=== PATIENT | male | born 1950 | race Caucasian/White ===

== ENCOUNTER 2016-11-20 16:56 | Emergency (ER) | payer BC ==
[~2016-11-20] VITALS: Ht 188 cm; Wt 111.9 kg
[~2016-11-20 16:56] MED LIST: ASPI-558 PO; CITA-49 PO; DOXE10CA21 PO; GABA-222 PO; LEVO150T58 PO; OMEP40CA30 PO; OXYC5CAP12 PO; SIMV80TA54 PO; TAMS0.4C46 PO; TIZA4CAP6 PO; [UNRECOGNIZED DRUG - CODE] PO; [UNRECOGNIZED DRUG - CODE] TD
[2016-11-20 17:11] VITALS: TEMP 98.4; Ht 188 cm; Wt 111.9 kg
[2016-11-20] MEDS ORDERED: LIDOCAINE 1% (10mg/ml) 30ml SDV INFIL ONE (17:15)
--- NOTE | 2016-11-20 17:15 | ERPDOC ---
Departure Disposition Decision Date: November 20, 2016 Disposition Decision Time: 17:54 (DERREK GIRARD APRN) Disposition: 01 DISCHARGED HOME, SELF-CARE Impression Impression (DERREK GIRARD APRN) Impression: Primary Impression: Finger laceration Encounter type: initial encounter Qualified Codes: S61.219A - Laceration without foreign body of unspecified finger without damage to nail, initial encounter Severity: Moderate (DERREK GIRARD APRN) Condition: Stable Seen By: Mid-level only (DERREK GIRARD APRN) Referrals: ALEJANDRA SOSA DO (Family) Patient Instructions: Laceration (ED) Problems/Meds/Labs Reviewed?: Yes Medications reviewed and manag: Yes (DERREK GIRARD APRN) Additional Instructions: Wash the area daily with soap and water. Cover the open wounds with the Xeroform dressing and gauze to help with healing. Follow up with wound care or your primary care provider for reevaluation if any further concerns. Have the sutures taken out in about 10-14 days. Follow up care ordered?: Yes Mental Status: Alert (DERREK GIRARD APRN) HPI - Skin General General Chief Complaint: Laceration Stated Complaint: CUT FINGERS ON SAW Time Seen by Provider: 17:08 Source: patient Exam Limitations: no limitations (DERREK GIRARD APRN) Time Seen by Provider: 17:08 (SHEILA GONZALEZ DO) HPI - Skin General Initial Comments He was at home and was cutting a piece of wood on his table saw. He cut the index finger and the ring finger on the left hand. He has an open laceration on the pad of the index finger and an avulsion injury on the ring finger that is just distal to the nail. His last tetanus vaccination was 2 years ago. Denies any numbness/tingling to the injured finger. Occurred At: home Onset: Rapid Duration: 1 hr Severity: mild Location: extremities (right hand, index finger and ring finger) Possible Cause: other (cut with saw) Associated Symptoms: denies symptoms Hx of Similar Symptoms: No (DERREK GIRARD APRN) Allergies: Coded Allergies: No Known Drug Allergies (Verified Allergy, Unknown, 04/30/08) Past History Patient Surgical History Colon resection (DERREK GIRARD APRN) Past Medical History Cardiac: CAD Psychological: depression (NOHAY,DERREK N NEW ORDER CLERK) Surgical History Denies Surgeries (NOHAY,DERREK N NEW ORDER CLERK) Family History Family History: Negative (NOHAY,DERREK N NEW ORDER CLERK) Vaccines Hx Influenza Vaccination: Yes (2008) Hx Pneumococcal Vaccination: No (NOHAY,DERREK N NEW ORDER CLERK) Social History Smoking Status: Never smoker Substance Use Type: does not use Alcohol Intake: none (NOHAY,DERREK N NEW ORDER CLERK) Review of Systems Musculoskeletal General: pain (at site of laceration), DENIES: joint pain, joint swelling, tenderness (NOHAY,DERREK N NEW ORDER CLERK) Integumentary Skin: lesion (laceration and skin avulsion), DENIES: color change, rash (NOHAY, DERREK N NEW ORDER CLERK) Neurological General: DENIES: numbness, tingling (NOHAY,DERREK N NEW ORDER CLERK) Physical Exam General General Nourishment: well nourished, well developed, appears stated age, no acute distress, adult General Body Habitus: well groomed (NOHAY,DERREK N NEW ORDER CLERK) Vitals and Pain First Documented Vital Signs Date Time Temp Pulse Resp B/P Pulse Ox O2 Delivery O2 Flow Rate FiO2 11/20/16 17:11 98.4 113 18 150/91 100 11/20/16 18:00 Room Air ([facility]) Vitals and Pain Weight: Kilograms: Height (feet): Height (inches): Triage Pain Scale: (NOHAY,DERREK N NEW ORDER CLERK) RN VS reviewed by Provider: Yes (NOHAY,DERREK N NEW ORDER CLERK) Normal Exams: Neurologic: Patient is alert, and oriented Psychiatric: Patient exhibits, appropriate attention, emotion and affect (NOLD,DERREK N NEW ORDER CLERK) Musculoskeletal (brief) Musculoskeletal Brief: FOUND: tenderness (at site of laceration and skin avulsion), NOT FOUND: deformity, loss of motion (NOLD,DERREK N NEW ORDER CLERK) Integumentary (brief) Integumentary Brief: FOUND: dry, other (sensation is intact to fingertips, cap refill is less than 3 seconds), pink, warm (NOLD,DERREK N NEW ORDER CLERK) Differential Diagnoses Considering: Other (skin avulsion, fracture-open, laceration, amputation of digit) (NOHAY,DERREK N NEW ORDER CLERK) Procedures Procedures Performed Procedures Performed: Laceration Repair (DERREK GIRARD APRN) Laceration/Wound Repair Wound/Laceration Repair #1: Wound Location: upper extremity (right index finger) Wound Length (cm): 1.5 Depth, Shape: subcutaneous, linear Explored: clean Irrigated: saline Prep: chlorasept Anesthesia: 1% Lidocaine Volume Anesthetic (ccs): 1 Wound Revision?: No Repaired With: Sutures Suture Size: 5:0 Suture Type: prolene Number of Sutures: 4 Layer Closure?: No Wound/Laceration Repair #2: Wound Location: upper extremity (right ring finger) Wound Length (cm): 1 Depth, Shape: tissue avulsed Explored: clean Irrigated: saline Repaired With: Other (None) (DERREK GIRARD APRN) Progress Results/Orders Orders Procedure Category Date Status Time Hand Left 3 View RAD 11/20/16 Taken Lidocaine 1% PHA 11/20/16 Complete (Xylocaine 1%) 17:15 () Medications Current ED Medications Lidocaine HCl (Xylocaine 1%) 100 mg O ONCE INFIL ; Start 11/20/16 at 17:15; Stop 11/20/16 at 17:16; Status DC () Progress Progress Will have him wash the areas daily at home and apply Xeroform dressing to the wounds and cover with gauze. Sutures out in 10-14 days. If increase redness/ swelling/tenderness then follow up for reevaluation. (DERREK GIRARD APRN) Xray Xray : Reason for Exam: finger injury Xray: Finger(s) R Interpretation: Normal (DERREK GIRARD APRN) DERREK GIRARD APRN November 20, 2016 17:15 OCTOBER,[facility] November 21, 2016 07:32
[2016-11-20] MEDS ORDERED: LEVO175T9 PO (17:27)
[2016-11-20] MEDS ORDERED: LEVO150T11 PO (17:27)
[2016-11-20] MEDS ORDERED: OMEP40CA52 PO (17:30)
[2016-11-20] MEDS ORDERED: SIMV80TA5 PO (17:30)
[2016-11-20] MEDS ORDERED: BUPR-51 PO (17:33)
[2016-11-20] MEDS ORDERED: SPIR25TA4 PO (17:33)
[2016-11-20] MEDS ORDERED: OXYC-532 PO (17:33)
[2016-11-20] MEDS ORDERED: CARV3.123 PO (17:33)
[2016-11-20] MEDS ORDERED: QUET50TA53 PO (17:33)
[2016-11-20] MEDS ORDERED: ZALE10CA26 PO (17:33)
[2016-11-20] MEDS ORDERED: LISI2.5T2 PO (17:33)
[2016-11-20 18:00] VITALS: BP 139/91; PULSE 91; RESP 18; O2SAT 100
--- NOTE | 2016-11-21 08:20 | DI ---
Indication: ITS.REASON: hand injury from table saw PROCEDURE: HAND LEFT 3 VIEW: Encounter: Initial Comparison: None Findings: There is no acute fracture, dislocation or malalignment identified. No radiopaque foreign bodies seen. Impression: No acute osseous abnormality. .
== END 2016-11-20 18:00 | disposition home or self-care (01) ==
LOC: ED 16:56
DX: S61.211A Laceration without foreign body of left index finger without damage to nail, initial encounter (principal); S61.215A Laceration without foreign body of left ring finger without damage to nail, initial encounter; W31.2XXA Contact with powered woodworking and forming machines, initial encounter; Y93.89 Activity, other specified; Y92.009 Unspecified place in unspecified non-institutional (private) residence as the place of occurrence of the external cause; Y99.8 Other external cause status